=== PATIENT | female | born 1995 | race Caucasian/White ===

== ENCOUNTER 2020-10-04 12:53 | Outpatient (CLI) | payer BC ==
[2020-10-05 04:28] LABS: SARS-CoV-2 PCR by NAA Not Detected (NotDetected)
== END 2020-10-04 12:54 | disposition home or self-care (01) ==
LOC: CSHLAB 12:53
PROVIDERS: ATTEND Student in an Organized Health Care Education/Training Program
DX: Z20.822 Contact with and (suspected) exposure to COVID-19 (principal)
CPT/HCPCS: 87635; U0003; U0005

== ENCOUNTER 2020-10-08 19:15 | Inpatient (IN) | payer BC ==
[2020-10-08] MEDS ORDERED: hydrALAZINE 20 MG/ML VIAL SLOW IVP PRN (20:23)
[2020-10-08] MEDS ORDERED: Ibuprofen 800 MG TAB PO PRN (20:23)
[2020-10-08] MEDS ORDERED: Misoprostol 200 MCG TAB PR PRN (20:23)
[2020-10-08] MEDS ORDERED: Promethazine HCl 25 MG/ML VIAL IM PRN (20:23)
[2020-10-08] MEDS ORDERED: Butorphanol Tartrate 1 MG/ML VIAL SLOW IVP PRN (20:23)
[2020-10-08] MEDS ORDERED: Methylergonovine 0.2 MG/ML VIAL IM PRN (20:23)
[2020-10-08] MEDS ORDERED: Lidocaine 1% (PF) 30 ML VIAL SC PRN (20:23)
[2020-10-08] MEDS ORDERED: Diphenoxylate HCl/Atropine Tablet PO PRN (20:23)
[2020-10-08] MEDS ORDERED: Lactated Ringer's 1,000 ML IV SCH (20:23)
[2020-10-08] MEDS ORDERED: Ondansetron PF 4 MG/2 ML Vial IVP PRN (20:23)
[2020-10-08] MEDS ORDERED: HYDROcodone/Acetaminophen 5/325 mg Tablet PO PRN (20:23)
[2020-10-08] MEDS ORDERED: Carboprost 250 MCG/ML AMP IM PRN (20:23)
[2020-10-08] MEDS ORDERED: Acetaminophen 500 MG TAB PO PRN (20:23)
[2020-10-08] MEDS ORDERED: NS w/ Oxytocin 30 units 500 ML IVPB PRN (20:36)
[2020-10-08 20:44] VITALS: BMI 37.5
[2020-10-08] MEDS ORDERED: NS w/ Oxytocin 30 units 500 ML IVPB SCH (20:45)
[2020-10-08 20:58] LABS: Hemoglobin 11.5 g/dL (12.0-15.5); Mean Corpuscular HGB CONC 33.8 g/dL (32.0-36.0); Mean Corpuscular Hemoglobin 31.4 pg (27.0-33.0); Mean Corpuscular Volume 92.9 fl (81.6-98.3); Mean Platelet Volume 12.7 fl (7.4-10.4); Platelet Count 135 10x3/uL (150-450); RBC Distribution Width 13.5 % (11.5-14.5); Red Blood Cell (RBC) Count 3.66 10x6/uL (3.90-5.03); White Blood Cell (WBC) Count 7.9 10x3/uL (3.5-10.5)
[2020-10-08 21:31] LABS: Syphilis Antibody Nonreactive (Nonreactive); Syphilis Antibody Index 0.04 S/CO (<1.00 Non-Reactive)
[2020-10-08 21:41] LABS: Hep B Surf Ag Non-Reactive S/CO (NonReactive)
[2020-10-08] MEDS: Misoprostol 100 MCG TAB VAG SCH (21:55)
[2020-10-08 22:00] LABS: HBSAg Index 0.18 S/CO (0-0.99)
[2020-10-09] MEDS: Misoprostol 100 MCG TAB VAG SCH ×3 (02:00→16:23)
[2020-10-09] MEDS ORDERED: Fentanyl 4 mcg/Bup 0.1% Cadd 100 ML ONE (07:56)
[2020-10-09] MEDS: NS w/ Oxytocin 30 units 500 ML ONE ×2 (08:09→13:57)
[2020-10-09] MEDS ORDERED: Promethazine HCl 25 MG/ML VIAL IM PRN ×2 (08:57→13:53)
[2020-10-09] MEDS ORDERED: diphenhydrAMINE 50 MG/ML VIAL IVP PRN (08:57)
[2020-10-09] MEDS ORDERED: Ondansetron PF 4 MG/2 ML Vial IVP PRN ×2 (08:57→13:53)
[2020-10-09] MEDS ORDERED: Acetaminophen 325 MG TAB PO PRN (08:57)
[2020-10-09] MEDS ORDERED: ePHEDrine 50 MG/ML VIAL SLOW IVP PRN (08:57)
[2020-10-09] MEDS ORDERED: Naloxone HCl 0.4 mg/ml Vial IVP PRN ×2 (08:57)
[2020-10-09] MEDS ORDERED: Lactated Ringer's 500 ML IV PRN (08:57)
[2020-10-09] MEDS ORDERED: Fentanyl 4 mcg/Bupivacaine 0.1% Cassette 100 ML EPIDURAL SCH (09:00)
[2020-10-09] MEDS ORDERED: Communication Order-Pharmacy FS SCH (09:00)
[2020-10-09] MEDS ORDERED: diphenhydrAMINE 25 MG CAP PO PRN (13:53)
[2020-10-09] MEDS ORDERED: Adacel (T-DAP) 0.5 ML SYRINGE IM ONE (13:53)
[2020-10-09] MEDS ORDERED: Preparation H Ointment 28 GM TUBE PR PRN (13:53)
[2020-10-09] MEDS ORDERED: Bisacodyl 10 MG SUPP PR PRN (13:53)
[2020-10-09] MEDS ORDERED: Lanolin Ointment 7 GM TUBE TOP PRN (13:53)
[2020-10-09] MEDS ORDERED: Milk Of Magnesia 30 ML UDCUP PO PRN (13:53)
[2020-10-09] MEDS ORDERED: hydrALAZINE 20 MG/ML VIAL SLOW IVP PRN (13:53)
[2020-10-09] MEDS ORDERED: HYDROcodone/Acetaminophen 5/325 mg Tablet PO PRN ×2 (13:53)
[2020-10-09] MEDS ORDERED: Benzocaine-Menthol 82.5 ML CAN TOP PRN (13:53)
[2020-10-09] MEDS ORDERED: NS w/ Oxytocin 30 units 500 ML IV SCH (14:15)
[2020-10-09] MEDS: Ferrous Sulfate 325 MG TAB PO SCH (14:44)
[2020-10-09] MEDS: Ibuprofen 800 MG TAB PO SCH ×3 (15:31→23:44)
[2020-10-09] MEDS: Docusate Calcium (SURFAK) 240 MG CAP PO SCH (23:43)
[2020-10-10] MEDS: Ibuprofen 800 MG TAB PO SCH ×2 (05:39→13:36)
[2020-10-10] MEDS: Ferrous Sulfate 325 MG TAB PO SCH (07:59)
[2020-10-10] MEDS ORDERED: Prenatal Vitamin 1 TAB PO SCH (09:00)
[2020-10-10] MEDS: Docusate Calcium (SURFAK) 240 MG CAP PO SCH (09:22)
[2020-10-10 11:57] VITALS: BP 115/63; TEMP 97.4
== END 2020-10-10 17:10 | disposition home or self-care (01) | DRG 807 ==
LOC: CSHLD 20:08 → CSHPP 10-09 14:41
PROVIDERS: ADMIT Student in an Organized Health Care Education/Training Program; ATTEND Student in an Organized Health Care Education/Training Program
PROC: 10E0XZZ Delivery of Products of Conception, External Approach (ICD-10-PCS; principal; 2020-10-09)
PROC: 0W8NXZZ Division of Female Perineum, External Approach (ICD-10-PCS; 2020-10-09)
DX: O48.0 Post-term pregnancy (principal); Z37.0 Single live birth; Z3A.40 40 weeks gestation of pregnancy; O76 Abnormality in fetal heart rate and rhythm complicating labor and delivery; O36.8930 Maternal care for other specified fetal problems, third trimester, not applicable or unspecified; O90.81 Anemia of the puerperium; D64.9 Anemia, unspecified
CPT/HCPCS: 36415; 51702; 82805; 85027; 86780; 86850; 86900; 86901; 87340; J2590

== ENCOUNTER 2023-06-01 16:51 | Inpatient (IN) | payer BC ==
[~2023-06-01 16:51] MED LIST: Bupivacaine 0.25% HCL 30 ML VIAL ONE
[2023-06-01 17:42] VITALS: BMI 35.7
[2023-06-01] MEDS ORDERED: Diphenoxylate HCl/Atropine Tablet PO PRN (18:47)
[2023-06-01] MEDS ORDERED: Ibuprofen 800 MG TAB PO PRN (18:47)
[2023-06-01] MEDS ORDERED: fentaNYL 50 mcg/mL 1 mL Vial SLOW IVP PRN (18:47)
[2023-06-01] MEDS ORDERED: Carboprost 250 MCG/ML AMP IM PRN (18:47)
[2023-06-01] MEDS ORDERED: hydrALAZINE 20 MG/ML VIAL SLOW IVP PRN (18:47)
[2023-06-01] MEDS ORDERED: Lidocaine 1% (PF) 30 ML VIAL SC PRN (18:47)
[2023-06-01] MEDS ORDERED: Acetaminophen 500 MG TAB PO PRN (18:47)
[2023-06-01] MEDS ORDERED: Ondansetron PF 4 MG/2 ML Vial IVP PRN ×2 (18:47→20:21)
[2023-06-01] MEDS ORDERED: Misoprostol 200 MCG TAB PR PRN (18:47)
[2023-06-01] MEDS ORDERED: HYDROcodone/Acetaminophen 5/325 mg Tablet PO PRN (18:47)
[2023-06-01] MEDS ORDERED: Methylergonovine 0.2 MG/ML VIAL IM PRN (18:47)
[2023-06-01] MEDS ORDERED: Promethazine HCl 25 MG/ML VIAL IM PRN ×2 (18:47→20:21)
[2023-06-01] MEDS ORDERED: Lactated Ringer's 1,000 ML IV SCH (19:00)
[2023-06-01] MEDS ORDERED: Oxytocin 30 units/NS 500 ML 500 ML IV SCH ×2 (19:00)
[2023-06-01 19:09] LABS: Hematocrit 36.3 % (34.9-44.5); Hemoglobin 12.2 g/dL (12.0-15.5); Mean Corpuscular HGB CONC 33.6 g/dL (32.0-36.0); Mean Corpuscular Volume 92.1 fl (81.6-98.3); Mean Platelet Volume 12.7 fl (7.4-10.4); Platelet Count 140 10x3/uL (150-450); RBC Distribution Width 14.4 % (11.5-14.5); Red Blood Cell (RBC) Count 3.94 10x6/uL (3.90-5.03); White Blood Cell (WBC) Count 7.8 10x3/uL (3.5-10.5)
[2023-06-01 19:30] LABS: Syphilis Antibody Nonreactive (Nonreactive); Syphilis Antibody Index 0.05 S/CO (<1.00 Non-Reactive)
[2023-06-01] MEDS ORDERED: fentaNYL/Ropivacaine Epidural 100 ML ONE (19:30)
[2023-06-01 19:31] LABS: HBSAg Index 0.18 S/CO (0-0.99); Hep B Surf Ag - L&D Non-Reactive S/CO (NonReactive)
[2023-06-01] MEDS ORDERED: Acetaminophen 325 MG TAB PO PRN (20:21)
[2023-06-01] MEDS ORDERED: diphenhydrAMINE 50 MG/ML VIAL IVP PRN (20:21)
[2023-06-01] MEDS ORDERED: ePHEDrine Sulfate 50 MG/10 ML VIAL SLOW IVP PRN (20:21)
[2023-06-01] MEDS ORDERED: Lactated Ringer's 500 ML IV PRN (20:21)
[2023-06-01] MEDS ORDERED: Moisturizing Cream (Eucerin) 113 GM JAR TOP PRN (20:21)
[2023-06-01] MEDS ORDERED: Naloxone HCl 0.4 mg/ml Vial IVP PRN ×2 (20:21)
[2023-06-01] MEDS ORDERED: fentaNYL 2 mcg/Ropivacaine 0.2% Epidural 100 ML CADD EPIDURAL SCH (20:30)
[2023-06-01] MEDS ORDERED: Communication Order-Pharmacy FS SCH (20:30)
[2023-06-02] MEDS ORDERED: Lanolin Ointment 7 GM TUBE TOP PRN (09:52)
[2023-06-02] MEDS ORDERED: diphenhydrAMINE 25 MG CAP PO PRN (09:52)
[2023-06-02] MEDS ORDERED: hydrALAZINE 20 MG/ML VIAL SLOW IVP PRN (09:52)
[2023-06-02] MEDS ORDERED: Boostrix 0.5 ML (Tdap) VIAL (>/=7 yrs of age) IM ONE (09:52)
[2023-06-02] MEDS ORDERED: Preparation H Ointment 28 GM TUBE PR PRN (09:52)
[2023-06-02] MEDS ORDERED: Promethazine HCl 25 MG/ML VIAL IM PRN (09:52)
[2023-06-02] MEDS ORDERED: Bisacodyl 10 MG SUPP PR PRN (09:52)
[2023-06-02] MEDS ORDERED: Benzocaine-Menthol 82.5 ML CAN TOP PRN (09:52)
[2023-06-02] MEDS ORDERED: Measles/Mumps/Rubella 10 MCG/0.5 ML VIAL SC ONE (09:52)
[2023-06-02] MEDS ORDERED: Milk Of Magnesia 30 ML UDCUP PO PRN (09:52)
[2023-06-02] MEDS ORDERED: HYDROcodone/Acetaminophen 5/325 mg Tablet PO PRN ×2 (09:52)
[2023-06-02] MEDS ORDERED: Ondansetron PF 4 MG/2 ML Vial IVP PRN (09:52)
[2023-06-02] MEDS ORDERED: Prenatal Vitamin 1 TAB PO SCH (11:00)
[2023-06-02] MEDS ORDERED: Docusate 100 MG CAP PO SCH (11:00)
[2023-06-02] MEDS: Ibuprofen 800 MG TAB PO SCH ×2 (12:00→20:12)
[2023-06-02] MEDS: Ferrous Sulfate 325 MG TAB PO SCH (13:54)
[2023-06-02] MEDS ORDERED: Ibuprofen 800 MG TAB PO SCH (14:00)
[2023-06-02] MEDS: Docusate 100 MG CAP PO SCH (20:12)
[2023-06-03] MEDS: Ibuprofen 800 MG TAB PO SCH ×2 (04:06→11:56)
[2023-06-03] MEDS: Ferrous Sulfate 325 MG TAB PO SCH (06:58)
[2023-06-03 08:12] VITALS: BP 109/56; TEMP 97.4
[2023-06-03] MEDS: Docusate 100 MG CAP PO SCH (08:30)
[2023-06-03] MEDS ORDERED: Prenatal Vitamin 1 TAB PO SCH (09:00)
== END 2023-06-03 13:25 | disposition home or self-care (01) | DRG 807 ==
LOC: CSHLD/OP 16:51 → CSHLD 17:45 → CSHPP 06-02 13:38
PROVIDERS: ADMIT Student in an Organized Health Care Education/Training Program; ATTEND Student in an Organized Health Care Education/Training Program
PROC: 10E0XZZ Delivery of Products of Conception, External Approach (ICD-10-PCS; principal; 2023-06-02)
PROC: 0UQMXZZ Repair Vulva, External Approach (ICD-10-PCS; 2023-06-02)
PROC: 3E033XZ Introduction of Vasopressor into Peripheral Vein, Percutaneous Approach (ICD-10-PCS; 2023-06-02)
DX: O42.02 Full-term premature rupture of membranes, onset of labor within 24 hours of rupture (principal); Z37.0 Single live birth; Z88.0 Allergy status to penicillin; O70.0 First degree perineal laceration during delivery; Z3A.40 40 weeks gestation of pregnancy
CPT/HCPCS: 51702; 85027; 86780; 86850; 86900; 86901; 87340; 99285; S0020